=== PATIENT | male | born 1980 | race Caucasian/White ===

== ENCOUNTER 2017-03-12 14:40 | Emergency (ER) | payer OTHER ==
[~2017-03-12] VITALS: Ht 175.3 cm; Wt 93.0 kg
[2017-03-12 14:40] VITALS: BP 162/100
[2017-03-12] MEDS ORDERED: ZYRTTAB2 PO (15:02)
[2017-03-12] MEDS ORDERED: FLON1SPR (15:02)
[2017-03-12] MEDS ORDERED: PATA2.5S OU (15:02)
== END 2017-03-12 15:12 | disposition home or self-care (01) ==
LOC: M ED 15:07
DX: H10.12 Acute atopic conjunctivitis, left eye (principal); J45.909 Unspecified asthma, uncomplicated

== ENCOUNTER 2017-06-22 09:32 | Emergency (ER) | payer OTHER ==
[~2017-06-22] VITALS: Ht 170.2 cm; Wt 95.4 kg
[~2017-06-22 09:32] MED LIST: FLON1SPR; PATA2.5S OU; ZYRTTAB8 PO
[2017-06-22 09:33] VITALS: BP 122/77
[2017-06-22] MEDS ORDERED: NORCOTAB PO (10:24)
[2017-06-22] MEDS ORDERED: IBUP-1022 PO (10:24)
[2017-06-22] MEDS ORDERED: CLEO300C2 PO (10:24)
== END 2017-06-22 10:49 | disposition home or self-care (01) ==
LOC: M ED 09:32
DX: K04.7 Periapical abscess without sinus (principal); K02.9 Dental caries, unspecified